=== PATIENT | female | born 1980 | race Two or more races ===

== ENCOUNTER 2017-09-10 19:01 | Emergency (ER) | payer OTHER ==
[~2017-09-10] VITALS: Ht 157.5 cm; Wt 83.9 kg
[2017-09-10 21:22] LABS: Basophils # (auto) 0 uL; Basophils % (auto) 0.6 % (0.0-2.0); Eosinophils # (auto) 0 uL; Hemoglobin 9.3 g/dL (12.2-16.2); Monocytes # (auto) 0.3 uL; Neutrophils # (auto) 5.7 uL; White Blood Cell 6.4 10^3/uL (4.4-10.8)
[2017-09-10 21:24] LABS: Eosinophils % (auto) 0.6 % (0.0-7.0); Hematocrit 28.9 % (36.0-46.0); Lymphocytes # (auto) 0.2 uL; Lymphocytes % (auto) 3.7 % (10.0-50.0); Mean Corpuscular Hemoglobin 25.9 pg (28.0-32.0); Mean Corpuscular Hgb Conc. 32.2 g/dL (32.0-36.0); Mean Corpuscular Volume 80.6 fL (80.0-100.0); Neutrophils % (auto) 90.1 % (37.0-80.0); Platelet Count (auto) 317 10^3/uL (140-450); Red Blood Cells 3.59 10^6/uL (4.0-5.20); Red Cell Distribution Width 18.7 % (11.8-14.3)
[2017-09-10 21:32] LABS: INR 0.95 (0.9-1.15); Partial Thromboplastin Time 25.8 sec (22.64-33.71); Prothrombin Time 10.4 sec (9.37-12.3)
[2017-09-10 21:33] LABS: Albumin 3.9 g/dL (3.4-5.0); BUN/Creatinine Ratio 16.4; Bilirubin, Total 0.2 mg/dL (0.2-1.0); Calcium 8.5 mg/dL (8.5-10.1); Potassium 3.6 mmol/L (3.5-5.1); Total Protein 7.3 g/dL (6.4-8.2)
[2017-09-10 23:08] VITALS: BP 147/87
[2017-09-10] MEDS ORDERED: ACETAMINOPHEN 500 MG TAB PO ONE (23:45)
[2017-09-10] MEDS ORDERED: SODIUM CHLORIDE 0.9% 1,000 ML IV ONE (23:45)
[2017-09-11] MEDS ORDERED: KETOROLAC TROMETH 60MG/2ML VIAL IM ONE (01:45)
[2017-09-11] MEDS ORDERED: cefTRIAXone SOD 1,000 MG VL IM ONE (01:45)
== END 2017-09-11 03:51 | disposition home or self-care (01) ==
LOC: ER 19:01
DX: R10.31 Right lower quadrant pain (principal); R50.9 Fever, unspecified; Z90.49 Acquired absence of other specified parts of digestive tract; Z87.891 Personal history of nicotine dependence
CPT/HCPCS: 36415; 74176; 76856; 80053; 82150; 85025; 85610; 85730; 96360; 96372; 99285; J0696; J1885; J7030

== ENCOUNTER 2022-02-10 08:16 | Emergency (ER) | payer OTHER ==
[~2022-02-10] VITALS: Ht 154.9 cm; Wt 99.8 kg
[2022-02-10 08:18] VITALS: BP 167/91
[2022-02-10] MEDS ORDERED: IBUP800T27 PO (09:51)
== END 2022-02-10 09:56 | disposition home or self-care (01) ==
LOC: ER 08:16
DX: S93.402A Sprain of unspecified ligament of left ankle, initial encounter (principal); Z90.49 Acquired absence of other specified parts of digestive tract; Z90.710 Acquired absence of both cervix and uterus; X50.0XXA Overexertion from strenuous movement or load, initial encounter; Y93.89 Activity, other specified; Y92.89 Other specified places as the place of occurrence of the external cause; Y99.8 Other external cause status
CPT/HCPCS: 73610

== ENCOUNTER 2023-07-11 17:31 | Emergency (ER) | payer BC, OTHER ==
[~2023-07-11] VITALS: Ht 154.9 cm; Wt 101.3 kg
[~2023-07-11 17:31] MED LIST: IBUP-1456 PO
[2023-07-11] MEDS ORDERED: HYDROcodone-ACET 10/325MG TAB PO ONE (18:45)
[2023-07-11 18:47] LABS: Alanine Aminotransferase 19 U/L (7-40); Albumin 4.8 g/dL (3.2-4.8); Alkaline Phosphatase 85 U/L (46-116); Anion Gap 9 (5-15); Aspartate Aminotransferase 11 U/L (13-40); BUN/Creatinine Ratio 12.9 (10.0-20.0); Bilirubin, Total 0.5 mg/dL (0.2-1.0); Blood Urea Nitrogen 9 mg/dL (9-23); Calcium 9.6 mg/dL (8.5-10.1); Carbon Dioxide 23 mmol/L (20-30); Chloride 105 mmol/L (98-107); Glucose 86 mg/dL (74-106); Potassium 4.2 mmol/L (3.5-5.1); Sodium 137 mmol/L (136-145); Total Protein 7.7 g/dL (5.7-8.2)
[2023-07-11 19:09] LABS: Basophils # (auto) 0 10 ^3/uL (0-0.2); Basophils % (auto) 0.5 % (0.0-2.0); Eosinophils # (auto) 0.1 10 ^3/uL (0-0.8); Eosinophils % (auto) 1.3 % (0.0-7.0); Hematocrit 38.6 % (36.0-46.0); Hemoglobin 12.8 g/dL (12.2-16.2); Lymphocytes # (auto) 1.8 10 ^3/uL (0.4-5.4); Lymphocytes % (auto) 20.5 % (10.0-50.0); Mean Corpuscular Hemoglobin 29.8 pg (28.0-32.0); Mean Corpuscular Hgb Conc. 33.2 g/dL (32.0-36.0); Mean Corpuscular Volume 89.7 fL (80.0-100.0); Monocytes # (auto) 0.5 10 ^3/uL (0-1.3); Monocytes % (auto) 5.9 % (0.0-12.0); Neutrophils # (auto) 6.2 10 ^3/uL (1.6-8.6); Neutrophils % (auto) 71.8 % (37.0-80.0); Nucleated Red Blood Cells % 0.2 %; Red Cell Distribution Width 14.5 % (11.8-14.3); White Blood Cell 8.7 10^3/uL (4.4-10.8)
[2023-07-11 20:07] LABS: Urine Bacteria NONE SEEN /hpf (None Seen); Urine Blood 1+ /uL (Negative); Urine Clarity Clear (Clear); Urine Color Yellow (Yellow); Urine Mucus FEW (None Seen); Urine Protein, UAD Negative (Negative); Urine Specific Gravity 1.022 (1.001-1.035); Urine Urobilinogen Normal (Negative); Urine WBC <1 /hpf (0 - 5); Urine pH 5.5 (5.0-8.0)
[2023-07-11] MEDS ORDERED: AMOX875T4 PO (22:08)
[2023-07-11] MEDS ORDERED: HYDR-4798 PO (22:08)
[2023-07-11] MEDS ORDERED: ZOFR4T PO (22:08)
[2023-07-11] MEDS ORDERED: AMOXICILLIN/CLAVUL 875 MG TAB PO ONE (22:15)
[2023-07-11 23:04] VITALS: BP 141/75; PULSE 68; RESP 18; TEMP 99; O2SAT 100
== END 2023-07-11 23:11 | disposition home or self-care (01) ==
LOC: ER 17:31
DX: K57.32 Diverticulitis of large intestine without perforation or abscess without bleeding (principal); N20.0 Calculus of kidney; Z90.49 Acquired absence of other specified parts of digestive tract; Z90.710 Acquired absence of both cervix and uterus
CPT/HCPCS: 36415; 74176; 80053; 81001; 81025; 83690; 85025